=== PATIENT | male | born 1960 | race Caucasian/White ===

== ENCOUNTER 2019-12-15 04:06 | Emergency (ER) | payer BC, OTHER ==
[2019-12-15 04:13] VITALS: BP 126/92; PULSE 77
--- NOTE | 2019-12-15 05:04 | EDM.PDOC ---
ED HPI GENERAL MEDICAL PROBLEM - General Chief Complaint: Upper Extremity Injury/Pain Stated Complaint: RIGHT HAND 4TH DIGIT INJURY Time Seen by Provider: 12/15/19 04:45 Source of Information: Reports: Patient History Limitations: Reports: No Limitations - History of Present Illness INITIAL COMMENTS - FREE TEXT/NARRATIVE: Caught end of left 4th finger in hole in locker door and now cannot straighten end of finger Minimal pain Onset: Today, Sudden Location: Reports: Upper Extremity, Right Quality: Reports: Ache Severity: Mild Context: Reports: Trauma RIGHT HAND Pain Score (Numeric/FACES): 2 - Related Data Allergies Allergy/AdvReac Type Severity Reaction Status Date / Time No Known Allergies Allergy Verified 12/15/19 04:13 Home Meds: Home Meds Omeprazole [Prilosec] 20 mg PO DAILY 08/18/15 [History] Past Medical History Respiratory History: Reports: Pneumonia, Recurrent Gastrointestinal History: Reports: GERD, Hemorrhoids, Helicobacter Pylori Musculoskeletal History: Reports: Fracture - Infectious Disease History Infectious Disease History: Reports: C-Difficile, Measles - Past Surgical History HEENT Surgical History: Reports: Tonsillectomy Social & Family History - Tobacco Use Smoking Status *Q: Never Smoker Second Hand Smoke Exposure: No - Caffeine Use Caffeine Use: Reports: Coffee - Recreational Drug Use Recreational Drug Use: No Review of Systems - Review of Systems Review Of Systems: See Below Musculoskeletal: Reports: Other (right 4th finger injury) ED EXAM, GENERAL - Physical Exam Exam: See Below Extremities: Other (right 4th finger with minimal swellnig Good ROM except cannot extend finger at DIP joint Cap refill < 3 sec Neuro exam intact) Course - Vital Signs Last Recorded V/S: Last Vital Signs Temp 97.3 F 12/15/19 04:06 Pulse 77 12/15/19 04:06 Resp 20 12/15/19 04:06 BP 126/92 H 12/15/19 04:06 Pulse Ox 99 12/15/19 04:06 - Orders/Labs/Meds Orders: Active Orders 24 hr Category Date Time Status Hand Comp Min 3V Rt [CR] Stat Exams 12/15/19 04:30 Ordered - Re-Assessments/Exams Free Text/Narrative Re-Assessment/Exam: 12/15/19 05:02 Xray No fracture or dislocation Departure - Departure Time of Disposition: 05:15 Disposition: Home, Self-Care 01 Clinical Impression: Injury of tendon of finger - Discharge Information *PRESCRIPTION DRUG MONITORING PROGRAM REVIEWED*: Not Applicable *COPY OF PRESCRIPTION DRUG MONITORING REPORT IN PATIENT MIKAYLA: Not Applicable Referrals: PCP,None [Primary Care Provider] - Additional Instructions: Wear splint Call Ortho clinic for appointment Follow up in clinic Sepsis Event Note - Evaluation Sepsis Screening Result: No Definite Risk - Focused Exam Vital Signs: Vital Signs Temp Pulse Resp BP Pulse Ox 12/15/19 04:06 97.3 F 77 20 126/92 H 99 Date Exam was Performed: 12/15/19 Time Exam was Performed: 04:59 - My Orders Last 24 Hours: My Active Orders 12/15/19 04:30 Hand Comp Min 3V Rt [CR] Stat - Assessment/Plan Last 24 Hours: My Active Orders 12/15/19 04:30 Hand Comp Min 3V Rt [CR] Stat
== END 2019-12-15 05:30 | disposition home or self-care (01) ==
LOC: LL.ED 04:06
DX: S56.405A Unspecified injury of extensor muscle, fascia and tendon of right ring finger at forearm level, initial encounter (principal); K21.9 Gastro-esophageal reflux disease without esophagitis; Z79.899 Other long term (current) drug therapy; W23.0XXA Caught, crushed, jammed, or pinched between moving objects, initial encounter
CPT/HCPCS: 73130-RT; 99283-25